=== PATIENT | male | born 1960 | race Caucasian/White ===

== ENCOUNTER 2022-10-07 15:02 | Outpatient (CLI) | payer BC, SELFPAY ==
[2022-10-07 22:23] LABS: Albumin* 4.7 g/dL (3.3-5.0); Chloride* 107 mmol/L (96-114); Sodium* 140 mmol/L (135-149)
[2022-10-07 22:24] LABS: Potassium* 4.5 mmol/L (3.6-5.1)
[2022-10-07 22:25] LABS: Cholesterol* 203 mg/dL (90-199); Creatinine* 0.9 mg/dL (0.5-1.5); Estimated Glomerular Filt Rate 95 ml/min
[2022-10-07 22:26] LABS: Alanine Aminotransferase* 21 U/L (4-50); Alkaline Phosphatase* 74 U/L (40-150); Aspartate Amino Transferase* 25 U/L (12-35); Bilirubin Total* 0.7 mg/dL (0.1-1.5); Blood Urea Nitrogen* 19 mg/dL (7-30); Carbon Dioxide* 22 mmol/L (20-32); Glucose* 102 mg/dL (60-115); Total Protein* 7.7 g/dL (6.0-8.3); Triglycerides* 107 mg/dL (40-149)
[2022-10-07 22:27] LABS: Calcium* 9.2 mg/dL (8.4-10.6); HDL Cholesterol* 89 mg/dL (>=40); LDL Cholesterol Calculated 93 mg/dL (<100)
[2022-10-07 23:01] LABS: Hepatitis C Virus Antibody* Negative (Negative)
[2022-10-07 23:04] LABS: PSA Screen* 4.25 ng/mL (0.10-4.00)
== END 2022-10-07 15:03 | disposition home or self-care (01) ==
PROVIDERS: PCP Family Medicine; Visit Provider Family Medicine
DX: Z00.00 Encounter for general adult medical examination without abnormal findings (principal); I10 Essential (primary) hypertension; E78.5 Hyperlipidemia, unspecified; Z11.59 Encounter for screening for other viral diseases; Z12.5 Encounter for screening for malignant neoplasm of prostate; Z13.6 Encounter for screening for cardiovascular disorders
CPT/HCPCS: 80053; 80061; 84153; 86803

== ENCOUNTER 2023-11-24 13:03 | Outpatient (CLI) | payer MEDICARE, SELFPAY | END 2023-11-24 13:04 | disposition home or self-care (01) | PROVIDERS: PCP Family Medicine; Visit Provider Family Medicine | DX: Z00.00 Encounter for general adult medical examination without abnormal findings (principal); I10 Essential (primary) hypertension; E78.5 Hyperlipidemia, unspecified; R97.20 Elevated prostate specific antigen [PSA]; Z13.1 Encounter for screening for diabetes mellitus; Z12.5 Encounter for screening for malignant neoplasm of prostate | CPT/HCPCS: 80053; 80061; 82043; 82570; G0103 ==

== ENCOUNTER 2023-12-05 12:43 | Outpatient (CLI) | payer MEDICARE, SELFPAY | END 2023-12-05 12:44 | disposition home or self-care (01) | LOC: RAD 12:44 | PROVIDERS: PCP Family Medicine; Visit Provider Family Medicine | DX: I10 Essential (primary) hypertension (principal); I44.0 Atrioventricular block, first degree; E78.5 Hyperlipidemia, unspecified | CPT/HCPCS: 93306 ==

== ENCOUNTER 2025-01-18 13:27 | Outpatient (CLI) | payer MEDICARE, SELFPAY | END 2025-01-18 13:28 | disposition home or self-care (01) | PROVIDERS: PCP Family Medicine; Visit Provider Family Medicine | DX: E78.5 Hyperlipidemia, unspecified (principal); I10 Essential (primary) hypertension; R73.03 Prediabetes; Z20.828 Contact with and (suspected) exposure to other viral communicable diseases; Z12.5 Encounter for screening for malignant neoplasm of prostate; Z01.84 Encounter for antibody response examination | CPT/HCPCS: 80053; 80061; 82043; 82570; 86765; G0103 ==

== ENCOUNTER 2025-01-30 10:24 | Outpatient (CLI) | payer MEDICARE, SELFPAY ==
--- NOTE | 2025-01-30 10:45 | CRLHL7_ITS ---
For Patients: As a result of the Century Cures Act, medical imaging exams and procedure reports are released immediately into your electronic medical record. You may view this report before your referring provider. If you have questions, please contact your health care provider. Examination: US abdominal aorta Indication: other congenital malformations of aorta. Abdominal aortic aneurysm screening. Technique: Wong scale and color Doppler images of the aorta and common iliac arteries are obtained. Comparison: None Findings: Proximal aorta: 2.6 x 2.5 cm Mid aorta: 2.3 x 2.1 cm Distal aorta: 2.0 x 1.9 cm Right common iliac artery: 1.6 x 1.4 cm Left common iliac artery: 1.6 x 1.4 cm Impression: No abdominal aortic aneurysm. Dictated by Gildardo Wise MD @ 01/30/2025 11:02:31 AM (Electronically Signed)
== END 2025-01-30 10:25 | disposition home or self-care (01) ==
LOC: US 10:26
PROVIDERS: PCP Family Medicine; Visit Provider Family Medicine
DX: Z13.6 Encounter for screening for cardiovascular disorders (principal); Q25.49 Other congenital malformations of aorta
CPT/HCPCS: 76706